=== PATIENT | female | born 1990 | race Caucasian/White ===

== ENCOUNTER 2023-06-26 13:43 | Emergency (ER) | payer SELFPAY ==
--- NOTE | 2023-06-26 13:59 | ED.GENADULT ---
HPI - General Adult General Chief complaint: Nausea/Vomiting/Diarrhea Stated complaint: vomiting,diarrhea Time Seen by Provider: 06/26/23 14:03 Source: patient and RN notes reviewed Mode of arrival: ambulatory Limitations: no limitations History of Present Illness HPI narrative: 33-year-old female presents to the [facility] with complaints nausea and vomiting since waking up this morning. States she has been unable to keep water down since this morning. Patient denies any pain, fevers. Patient also reports that she has had bloody diarrhea, states it might be hemorrhoids as well as severe rectal pain for the last 3 days. States that whenever she has a bowel movement it is bright red. No external hemorrhoid noted on exam. Extreme tenderness to noted to the rectum. No erythema or swelling noted Denies any urinary symptoms. Onset (ago): day(s) Related Data Home Medications Medication Instructions Recorded Confirmed No Home Medications 06/26/23 06/26/23 Allergies Allergy/AdvReac Type Severity Reaction Status Date / Time Penicillins Allergy Severe Hives Verified 06/26/23 14:04 Review of Systems Review of Systems: All systems reviewed & are unremarkable except as noted in HPI and below Constitutional: Constitutional: Reports no additional constitutional complaints Eyes: Eyes: Reports no additional eye complaints ENT: Reports system reviewed and no additional complaints, except as documented Cardiovascular: Cardiovascular: Reports no additional cardiovascular complaints, Denies chest pain and Denies dyspnea Respiratory: Respiratory: Reports no additional respiratory complaints, Denies chest congestion, Denies cough and Denies dyspnea Gastrointestinal: Gastrointestinal: Reports as per HPI, Denies abdominal pain, Reports hematochezia, Reports change in stool character, Denies coffee ground emesis, Reports diarrhea, Reports nausea, Reports vomiting, Denies hematemesis and Reports other (Rectal pain) Genitourinary: Genitourinary: Reports no additional female genitourinary complaints Musculoskeletal: Musculoskeletal: Reports no additional musculoskeletal complaints Integumentary/Breasts: Skin/Breast: Reports system reviewed and no additional complaints, except as docu Neurologic: Reports system reviewed and no additional complaints, except as documented Psychiatric: Psychiatric: Reports no additional psychiatric complaints Allergic/Immunologic: Allergic/Immunologic: Reports no additional allergic/immunologic complaints PMFSH Surgical History Surgical History (Updated 06/26/23 @ 14:34 by Zaida Solitario APRN) History of Comments At the time of my signature, I reviewed and agree with the nursing past medical, surgical, social, and family history. There is no relevant family history pertinent to the patient complaint. Exam Const: General: cooperative, no acute distress, well developed, alert, awake, poor hygiene and uncomfortable Nutritional Appearance: well nourished Orientation/consciousness: patient oriented x3 Limitations: no limitations HENMT: Head: normal to inspection Ears: hearing grossly normal bilaterally and external ears normal Face/Nose/Sinus: Normal external nose present, Normal nares present, Normal nasal mucous membranes and turbinates present, normal facial exam and face symmetric Face and sinus: normal facial exam and face symmetric Mouth: Yes Normal oral and palatal mucosa present, Yes lip normal and Yes moist mucous membranes Throat: posterior oropharynx normal and uvula midline Eyes: General: appearance normal, both eyes and all related structures Alignment and Position: alignment normal Periorbital: periorbital findings normal Pupils: Equal, round and reactive pupils present EOM: EOMs intact bilaterally Neck: Neck: normal visual inspection, full ROM, no lymphadenopathy and no meningeal signs Chest: Chest palpation & inspection: normal inspection of the chest Resp: Effort &
[2023-06-26 14:04] VITALS: BP 114/67; PULSE 68; RESP 18; TEMP 37.1; O2SAT 100
== END 2023-06-26 14:23 | disposition short-term general hospital (02) ==
PROVIDERS: Emergency Provider Nurse Practitioner
DX: R11.2 Nausea with vomiting, unspecified (principal); K92.1 Melena
CPT/HCPCS: 99202; G0463

== ENCOUNTER 2023-06-26 15:00 | Emergency (ER) | payer SELFPAY ==
[2023-06-26] VITALS (16 sets, daily range): BP systolic 108–133; BP diastolic 67–98; PULSE 53–72; RESP 13–24; TEMP 36.7; O2SAT 92–100
[2023-06-26 15:22] LABS: Basophils Absolute Auto 0.1 K/mm3 (0.0-0.1); Basophils Percent Auto 0.4 % (0.2-1.2); Eosinophils Absolute Auto 0.1 K/mm3 (0-0.3); Eosinophils Percent Auto 0.7 % (0-4.4); Hematocrit 38.4 % (37.0-47.0); Hemoglobin 13.4 g/dL (12.0-15.0); Immature Granulocyte Absolute 0.03 K/mm3 (0.00-0.031); Immature Granulocyte Percent A 0.2 % (0-0.5); Lymphocytes Absolute Auto 1.88 K/mm3 (0.9-3.2); Lymphocytes Percent Auto 13.7 % (18.3-44.2); Mean Corpuscular HGB Conc 34.9 g/dl (32-36); Mean Corpuscular Hemoglobin 32.7 pg (26-34); Mean Corpuscular Volume 93.7 fl (80-100); Mean Platelet Volume 9.8 fl (7.4-10.4); Monocytes Absolute Auto 0.6 K/mm3 (0.1-0.6); Monocytes Percent Auto 4.4 % (2.6-8.5); Neutrophils Absolute Auto 11.1 K/mm3 (1.3-6.7); Neutrophils Percent Auto 80.6 % (45.5-73.1); Platelet Count Result 296 k/mm3 (150-375); Red Cell Distribution Width 12.5 % (11.5-14.5); White Blood Count 13.8 K/mm3 (4.5-10.0)
[2023-06-26 15:41] LABS: Alanine Aminotransferase 16 U/L (6-35); Albumin Level 4.4 g/dL (3.5-5.1); Alkaline Phosphatase 72 U/L (38-126); Anion Gap 8 mmol/L (8-16); Aspartate Amino Transferase 24 U/L (14-36); Bilirubin,Total 0.9 mg/dL (0.2-1.3); Blood Urea Nitrogen 5 mg/dL (7-17); Calcium 9.2 mg/dL (8.4-10.2); Carbon Dioxide 21 mmol/L (22-30); Chloride 107 mmol/L (98-107); Estimated CRCL calculation 116 ml/min; Estimated Glomerular Filt Rate > 60; Glucose 99 mg/dL (65-110); Lipase 88 U/L (23-300); Potassium 3.2 mmol/L (3.4-5.0); Sodium 136 mmol/L (137-145)
[2023-06-26 16:25] LABS: Appearance Urine Cloudy (Clear); Bacteria Urine 2+ /hpf; Bilirubin Urine Negative (Negative); Blood Urine Negative (Negative); Color Urine Dark Yellow (Yellow); Glucose Urine UA Negative (Negative); Ketones Urine Trace mg/dL (Negative); Leukocyte Esterase Ur Negative LEU/UL (Negative); Mucus Urine Present /lpf; Need Manual Microscopic Reviewed; Nitrate Urine Negative (Negative); Non Pathogenic Casts 0-2; Protein Urine 1+ mg/dL (Negative); Specific Grav Ur 1.026 (1.001-1.035); Squamous Epithelial Cell Urine Many /hpf (Few); WBC Urine 21-50 /hpf
[2023-06-26 16:33] LABS: Add Urine Microscopic? YES
--- NOTE | 2023-06-26 17:22 | ED.NAVMDI ---
HPI - Nausea/Vomiting/Diarrhea General Chief complaint: Nausea/Vomiting/Diarrhea Stated complaint: bloody diarrhea Time Seen by Provider: 06/26/23 16:44 History of Present Illness HPI Narrative: Patient is a 33-year-old female presenting with diarrhea. Patient states that she has had diarrhea as well as persistent nausea for the last 3 to 4 days. States that she had an episode of bloody diarrhea about 3 days ago but this has not reoccurred. States that she has been having trouble keeping things down due to her nausea. She went to urgent care today who advised that she come to the ER for further evaluation. States that currently she is having a lot of pain in her rectum but no pain anywhere else. Denies abdominal pain. States that she feels nauseated. No chest pain, cough, shortness of breath. No dysuria or hematuria. No flank pain. No melena, hematemesis Related Data Allergies Allergy/AdvReac Type Severity Reaction Status Date / Time Penicillins Allergy Severe Hives Verified 06/26/23 14:04 Review of Systems Review of Systems: All systems reviewed & are unremarkable except as noted in HPI and below [facility] History Surgical History History of Exam Narrative: GENERAL: Well-appearing, no acute distress, pleasant and cooperative HEAD: Normocephalic, atraumatic. EYES: PERRLA and EOMI. ENT: Mucous membranes moist. NECK: Supple. CHEST: Clear to auscultation. No respiratory distress. HEART: Regular rate and rhythm. . ABDOMEN: Soft, nontender, nondistended RECTAL: No fissures or external hemorrhoids, tender with palpation, no internal hemorrhoids appreciated EXTREMITIES: Normal range of motion. SKIN: Warm, dry, no rash. NEURO: No focal deficits. Alert and oriented x3. PSYCH: Normal mood and affect. Course Vital Signs Vital signs: Vital Signs Temperature 98.1 F 06/26/23 15:03 Pulse Rate 71 06/26/23 15:03 Respiratory Rate 15 06/26/23 15:03 Blood Pressure 108/76 06/26/23 15:03 Pulse Oximetry 99 06/26/23 15:03 Oxygen Delivery Room Air 06/26/23 15:03 Temperature 98.1 F 06/26/23 17:31 Pulse Rate 72 06/26/23 18:46 Respiratory Rate 18 06/26/23 18:45 Blood Pressure 126/83 06/26/23 18:45 Pulse Oximetry 100 06/26/23 18:46 Oxygen Delivery Room Air 06/26/23 15:03 MDM - Nausea/Vomiting/Diarrhea MDM Narrative Medical decision making narrative: Patient is a 33-year-old female presenting with vomiting and diarrhea for several days. Vitals are stable. Exam remarkable for the above. Patient is very tender on rectal exam but no hemorrhoids or fissures are appreciated. Hemoccult negative. Blood work with leukocytosis and mild hypokalemia. Patient received Zofran, Toradol, fluids and is now asking to go home. She states all of her rectal pain has resolved. She is no longer vomiting. She has not had any more episodes of diarrhea. Tolerating p.o. intake. Feel she is safe for outpatient management. Advised PCP follow-up. We will send her home with some Zofran to help with the nausea. Appropriate return precautions given. Patient voiced understanding and is agreeable with plan. Discharged in stable condition. Differential Diagnosis Differential diagnosis: Likely food poisoning, gastroenteritis, dehydration and other (Nausea and vomiting, diarrhea) Medical Records Attestation: I reviewed the patient's medical records. Lab Data Attestation: I reviewed the patient's lab results. 06/26/23 15:11 06/26/23 15:11 Labs: Lab Results 06/26/23 06/26/23 06/26/23 Range/Units 15:11 16:10 17:28 WBC 13.8 H (4.5-10.0) K/mm3 RBC 4.10 L (4.2-5.4) M/mm3 Hgb 13.4 (12.0-15.0) g/dL Hct 38.4 (37.0-47.0) % MCV 93.7 (80-100) fl MCH 32.7 (26-34) pg MCHC 34.9 (32-36) g/dl RDW 12.5 (11.5-14.5) % Plt Count 296 (150-375) k/mm3 MPV 9.8 (7.4-10
[2023-06-26] MEDS: SODIUM CHLORIDE 0.9% IV 1,000 ML 999 ML IV CONT (17:37)
[2023-06-26] MEDS: KETOROLAC 30 MG/ML VIAL (*BKC) IV PUSH (17:37)
[2023-06-26] MEDS: ONDANSETRON INJ 4 MG/2 ML VIAL IV PUSH (17:37)
[2023-06-26 18:14] LABS: Influenza A QL RT-PCR Negative (Negative); Influenza B QL RT-PCR Negative (Negative); SARS-CoV-2 RNA PCR Negative (Negative)
== END 2023-06-26 19:08 | disposition home or self-care (01) ==
PROVIDERS: Emergency Medicine; Emergency Provider Emergency Medicine
DX: R19.7 Diarrhea, unspecified (principal); R11.2 Nausea with vomiting, unspecified; Z20.822 Contact with and (suspected) exposure to COVID-19
CPT/HCPCS: 36415; 80053; 81001; 81025; 83690; 85025; 87086; 87636; 96361; 96374; 96375; 99284; J1885; J2405; J7030